=== PATIENT | male | born 1960 ===

== ENCOUNTER 2021-03-18 21:56 | Emergency (ER) | payer OTHER ==
[~2021-03-18] VITALS: Ht 170.2 cm; Wt 77.3 kg
[2021-03-18] MEDS ORDERED: LIDOCAINE 1% 10 ML VIAL ONE (23:21)
[2021-03-18] MEDS ORDERED: LORazepam 1 MG TABLET PO ONE (23:45)
[2021-03-19] MEDS ORDERED: IBUPROFEN 400 MG TABLET PO ONE (00:30)
[2021-03-19 00:59] VITALS: BP 115/68
== END 2021-03-19 01:04 | disposition home or self-care (01) ==
LOC: EMS 21:59
DX: S62.615A Displaced fracture of proximal phalanx of left ring finger, initial encounter for closed fracture (principal); W18.39XA Other fall on same level, initial encounter; Y93.89 Activity, other specified; Y92.89 Other specified places as the place of occurrence of the external cause; Y99.8 Other external cause status
CPT/HCPCS: 26725; 73130; 73140 ×2; 99284; J3490